=== PATIENT | female | born 1990 | race Two or more races ===

== ENCOUNTER 2018-04-13 11:21 | Emergency (ER) | payer SELFPAY ==
[~2018-04-13] VITALS: Ht 160 cm; Wt 61.2 kg
[2018-04-13 13:01] VITALS: BP 125/89
[2018-04-13] MEDS ORDERED: KETOROLAC TROMETH 60MG/2ML VIAL IM ONE (14:00)
[2018-04-13 14:09] LABS: Urine Bacteria FEW /hpf (None Seen); Urine Blood 2+ /uL (Negative); Urine Specific Gravity 1.007 (1.001-1.035); Urine WBC 533 /hpf (0 - 5); Urine WBC Clumps PRESENT /hpf (None Seen)
[2018-04-13] MEDS ORDERED: cefTRIAXone SOD 1,000 MG VL IM ONE (15:15)
[2018-04-13] MEDS ORDERED: cefTRIAXone SOD 1,000 MG VL ONE (15:17)
[2018-04-13] MEDS ORDERED: LIDOCAINE 2% (LOCAL ANESTH.) PF 5ml SDV ONE (15:26)
== END 2018-04-13 15:49 | disposition home or self-care (01) ==
LOC: ER 11:28
DX: N12 Tubulo-interstitial nephritis, not specified as acute or chronic (principal)
CPT/HCPCS: 74176; 81001; 96372; 99284; J0696; J1885; J2001